=== PATIENT | male | born 1970 | race Caucasian/White ===

== ENCOUNTER 2018-07-29 08:04 | Day surgery (SDC) | payer OTHER, BC ==
[~2018-07-29 08:04] MED LIST: CEFAZOLIN 2 GM/50 ML (PMX) 50 ML IVPB
[2018-07-29] MEDS: LACTATED RINGER'S 1,000 ML IV* (08:58)
[2018-07-29] MEDS ORDERED: MEPERIDINE 25 MG INJ IV (09:30)
[2018-07-29] MEDS ORDERED: METOCLOPRAMIDE 10 MG INJ IV (09:30)
[2018-07-29] MEDS ORDERED: OXYCODONE/ACETAMINOPHEN (5/325) TAB PO ×2 (09:30→10:00)
[2018-07-29] MEDS ORDERED: ALBUTEROL 0.083% (NEB) 2.5 MG/3 ML AMP HHN (09:30)
[2018-07-29] MEDS ORDERED: FENTAnyl 50 MCG/ML VIAL IV ×3 (09:30)
[2018-07-29] MEDS ORDERED: HYDROmorphONE 1 MG/5 ML IV SYRINGE IV ×2 (09:30)
[2018-07-29] MEDS ORDERED: DIPHENHYDRAMINE 50 MG INJ IV (09:30)
[2018-07-29] MEDS ORDERED: ONDANSETRON 4 MG INJ IV (09:30)
[2018-07-29] MEDS ORDERED: morphine 2 MG INJ IV (10:00)
[2018-07-29] MEDS: VANCOMYCIN 1 GM INJ (11:04)
[2018-07-29] MEDS: ROPIVACAINE 0.5 % 30 ML VIAL (12:00)
[2018-07-29] MEDS: HYDROmorphONE 1 MG/5 ML IV SYRINGE IV (13:28)
[2018-07-29] MEDS: ONDANSETRON 4 MG INJ IV (14:31)
[2018-07-29] MEDS ORDERED: SUCCINYLCHOLINE CHLORIDE 100 MG/5 ML SYG IV (16:40)
[2018-07-29] MEDS ORDERED: FENTAnyl 50 MCG/ML VIAL (16:40)
[2018-07-29] MEDS ORDERED: CEFAZOLIN 1 GM INJ (16:40)
[2018-07-29] MEDS ORDERED: PROPOFOL 20 ML (16:40)
[2018-07-29] MEDS ORDERED: ROCURONIUM 50 MG INJ (16:40)
[2018-07-29] MEDS ORDERED: SUGAMMADEX SODIUM 200 MG/2 ML VIAL IV (16:40)
[2018-07-29] MEDS ORDERED: ROPIVACAINE 0.5 % 30 ML VIAL (16:40)
[2018-07-29] MEDS ORDERED: LIDOCAINE 100 MG SYRINGE (16:40)
[2018-07-29] MEDS ORDERED: ATORVASTATIN 40 MG TAB PO (21:00)
== END 2018-07-29 15:35 | disposition home or self-care (01) ==
LOC: SDS 08:04
DX: S83.511D Sprain of anterior cruciate ligament of right knee, subsequent encounter (principal); S83.281D Other tear of lateral meniscus, current injury, right knee, subsequent encounter; S83.241D Other tear of medial meniscus, current injury, right knee, subsequent encounter; X58.XXXD Exposure to other specified factors, subsequent encounter; M94.261 Chondromalacia, right knee; E78.5 Hyperlipidemia, unspecified
CPT/HCPCS: 29880